=== PATIENT | male | born 1940 | race Caucasian/White ===

== ENCOUNTER → 2016-09-07 | Outpatient (CLI) | payer OTHER, BC | LOC: MMPC 11:11 | PROVIDERS: ATTEND Internal Medicine | DX: R94.5 Abnormal results of liver function studies (principal); E78.5 Hyperlipidemia, unspecified; I10 Essential (primary) hypertension; K62.7 Radiation proctitis; G47.00 Insomnia, unspecified; Z85.46 Personal history of malignant neoplasm of prostate | CPT/HCPCS: 99214; G0463 ==

== ENCOUNTER → 2016-11-30 | Outpatient (CLI) | payer OTHER, BC ==
[2016-11-30 09:18] LABS: CHOL/HDL RATIO 2.27 RATIO (0-4.0)
[2016-11-30 09:43] LABS: CALCIUM 9.6 mg/dL (8.7-10.7); SERUM ALBUMIN 4.4 g/dL (3.5-4.8)
== END ==
LOC: LAB 08:27
PROVIDERS: ATTEND Internal Medicine
DX: E78.5 Hyperlipidemia, unspecified (principal); I10 Essential (primary) hypertension; R94.5 Abnormal results of liver function studies; M79.651 Pain in right thigh; R53.1 Weakness; Z47.89 Encounter for other orthopedic aftercare; Z98.1 Arthrodesis status
CPT/HCPCS: 36415; 80053; 80061; 82550

== ENCOUNTER → 2016-12-04 | Outpatient (CLI) | payer OTHER, BC | LOC: MMPC 11:11 | PROVIDERS: ATTEND Internal Medicine | DX: E78.5 Hyperlipidemia, unspecified (principal); I10 Essential (primary) hypertension; Z85.46 Personal history of malignant neoplasm of prostate | CPT/HCPCS: 99214; G0463 ==